=== PATIENT | female | born 1980 | race African-American/Black ===

== ENCOUNTER 2016-08-25 07:00 | Inpatient (IN) | payer OTHER ==
[~2016-08-25] VITALS: Ht 175.3 cm; Wt 82.6 kg
[~2016-08-25 07:00] MED LIST: MULTI-DAY VITA1 EACH PO
--- NOTE | 2016-09-01 09:45 | Operative Report ---
Operative/Inv Procedure Report Surgery Date: 09/01/16 Name of Procedure: Exploratory laparotomy and multiple myomectomy Pre-Operative Diagnosis: Fibroids menorrhagia Post-Operative Diagnosis: Same Estimated Blood Loss: 50ml to 100ml Surgeon/Nursing Faculty: JANE LIANG,CARLA Parkinsonand DR CHAVEZ Anesthesia: general endotracheal tube Operative/Procedure Note Note: Procedure note patient was taken the operating room placed supine position after adequate anesthesia patient placed in dorsolithotomy position the vagina was prepped draped so fashion bladder cystoscopy was performed and placement stents by Dr.Arnold Ramos will dictate that part of the case. Patient was returned spine position on the abdomen was prepped and draped so fashion through a Pfannenstiel skin incision skin was cut was carried down to rectus fascia which was cut in curvilinear fashion I direction peritoneal cavity was entered bluntly as well as sharply Jones O'Davin was placed in usual fashion lap pads with rings were placed patient was placed in Trendelenburg Pitressin was injected into the fundus the uterus a single-tooth tenaculum was used to traction the fundus the uterus with there was a 3 cm 4 cm fibroid this was the serosa was opened the fibroid was teased away from the myometrium I and sent to pathology hemostasis was apparent on at this point the cervical fibroid which could be seen anteriorly and posteriorly the serosa between the uterosacrals was injected with Pitressin I at this point serosa was opened and the fibroid was teased away from the myometrium of the uterus patient tolerated that well on at this point the cervical delivered was oversewn running locking suture of 0 I it was imbricated with interrupted [id number] for hemostasis the fundal fibroid on incision was closed with 0 is well hemostasis was apparent at the end of the case Rich was applied to the surgical units after after the abdomen had been irrigated with copious amounts warm saline to clear. Oral instruments removed from the abdomen the lap pads were removed the counts correct the peritoneum was reprocessed and 0 fascia was reapproximated to continue sutures #1 on Bovie coagulation subcutaneous tissue was performed using a Bovie on hemostasis was apparent the skin was reapproximated stan sterile dressing was applied stents removed bilaterally tip intact without consequence patient was returned to supine position she was awakened from anesthesia extubated and transported recovery room awake alert Findings: 16 week size fibroid uterus a fundal fibroid that was possibly 4 cm on a fibroid that extended into the cervical canal that was approximately 6 cm I to submucosal fibroids 1 cm that was deep into the submucosa of the uterine lining. Normal ovaries bilaterally
[2016-09-01 10:34] LABS: ABSOLUTE EOSINOPHIL COUNT 0.1 /CUMM (0.0-0.7); BASOPHIL % 0.4 % (0.0-2.0); EOSINOPHIL % 0.6 % (0-5); MEAN CORPUSCULAR VOLUME 72.5 FL (81.0-99.0)
[2016-09-01 11:02] LABS: ABSOLUTE BASOPHIL COUNT 0 /CUMM (0.0-0.2); ABSOLUTE GRANULOCYTE CT 9.4 /CUMM (1.4-6.5); ABSOLUTE MONOCYTE COUNT 0.5 /CUMM (0.10-0.60); GRANULOCYTE % 72.4 % (42.2-75.2); HEMATOCRIT 27.3 % (37-47); MEAN CORPUSCULAR HGB 22.9 PG (27.0-31.0); MEAN CORPUSCULAR HGB CONC 31.5 G/DL (33.0-37.0); MEAN PLATELET VOLUME 9.9 FL (7.4-10.4); PLATELET COUNT 286 /CUMM (130-400); RBC DISTRIBUTION WIDTH 16.9 % (11.5-14.5); RED BLOOD CELL CT 3.76 /CUMM (4.20-5.40)
--- NOTE | 2016-09-02 09:30 | PN- Post Delivery/GYN ---
Subjective Subjective: NO COMPLAINTS Objective Last 24 Hrs of Vital Signs/I&O VSS PER CHART Physical Exam: PE PALE WF ABD SOFT NT LOCHIA MINIMAL FUNDUS FIRM NT EXT -HOMANS +EDEMA +1 Assessment/Plan Assessment/Plan ASSESS S/P PLAN CONT PPC
[2016-09-02 10:06] LABS: ABSOLUTE BASOPHIL COUNT 0.1 /CUMM (0.0-0.2); ABSOLUTE EOSINOPHIL COUNT 0 /CUMM (0.0-0.7); ABSOLUTE GRANULOCYTE CT 12.7 /CUMM (1.4-6.5); ABSOLUTE LYMPH COUNT 1.7 /CUMM (1.2-3.4); ABSOLUTE MONOCYTE COUNT 1.7 /CUMM (0.10-0.60); BASOPHIL % 0.3 % (0.0-2.0); EOSINOPHIL % 0 % (0-5); GRANULOCYTE % 78.8 % (42.2-75.2); HEMATOCRIT 24.9 % (37-47); MEAN CORPUSCULAR HGB CONC 30.5 G/DL (33.0-37.0); MEAN CORPUSCULAR VOLUME 71.9 FL (81.0-99.0); MEAN PLATELET VOLUME 10.4 FL (7.4-10.4); PLATELET COUNT 269 /CUMM (130-400); RBC DISTRIBUTION WIDTH 17.1 % (11.5-14.5); RED BLOOD CELL CT 3.47 /CUMM (4.20-5.40); WHITE BLOOD CELL COUNT 16.1 /CUMM (4.8-10.8)
[2016-09-03 09:13] LABS: ABSOLUTE BASOPHIL COUNT 0 /CUMM (0.0-0.2); ABSOLUTE EOSINOPHIL COUNT 0 /CUMM (0.0-0.7); ABSOLUTE GRANULOCYTE CT 4.9 /CUMM (1.4-6.5); ABSOLUTE LYMPH COUNT 3.5 /CUMM (1.2-3.4); ABSOLUTE MONOCYTE COUNT 0.8 /CUMM (0.10-0.60); BASOPHIL % 0.5 % (0.0-2.0); EOSINOPHIL % 0.5 % (0-5); GRANULOCYTE % 52.8 % (42.2-75.2); HEMATOCRIT 24.3 % (37-47); MEAN CORPUSCULAR HGB 22.5 PG (27.0-31.0); MEAN CORPUSCULAR HGB CONC 31.2 G/DL (33.0-37.0); MEAN CORPUSCULAR VOLUME 72.3 FL (81.0-99.0); MEAN PLATELET VOLUME 10.3 FL (7.4-10.4); RBC DISTRIBUTION WIDTH 17.1 % (11.5-14.5); RED BLOOD CELL CT 3.37 /CUMM (4.20-5.40); WHITE BLOOD CELL COUNT 9.3 /CUMM (4.8-10.8)
[2016-09-03 09:45] LABS: PLATELET COUNT 262 /CUMM (130-400)
[2016-09-03 09:53] VITALS: BP 96/50
--- NOTE | 2016-09-03 10:32 | Cons- Medical ---
AURELIA LIANG,SOFÍA 09/03/16 1031: General Information and HPI Consulting Request Date of Consult: 09/03/16 Requested By: CARLA LARA MD Reason for Consult: Chest pain History of Present Illness: 35-year-old female with no past medical history myomectomy on 09/01/2016. Medical consult was called for chest pain. On interviewing the patient she reported chest pain substernal with started yesterday after taking Motrin. Chest pain on and off with intensity varying from 7 x 10-3 x 10, not radiating, associated with catching up of breath while talking, denies shortness of breath and ambulation, dizziness, palpitations, syncope, pleuritic chest pain. Patient has history of acid reflux, but reports this pain is different from what she had before. Denies nausea, vomiting, headache, difficulty in urination, diarrhea, acid reflex, difficulty in swallowing, appetite change, fever, chills, pneumonia Allergies/Medications Allergies: Coded Allergies: NO KNOWN ALLERGIES (03/22/16) Home Med List: Multivitamin (Multi-Day Vitamins) 1 EACH TABLET 1 TAB PO DAILY SUPPLEMENT ( Reported) Current Medications: Current Medications Sig/Brian Start time Last Medication Dose Route Stop Time Status Admin Dextrose/Lactated 1,000 ML Q8H 09/01 944 DC 09/02 Ringer's IV 0626 Diphenhydramine HCl 25 MG Q6P PRN 09/01 0845 AC INJ Docusate Sodium 100 MG BID 09/01 1000 AC 09/03 PO 0948 Enoxaparin Sodium 40 MG DAILY 09/02 1000 AC 09/03 SC 0948 Hydromorphone HCl 50 MG Q24H PRN 09/01 1030 AC Sodium Chloride 45 ML IV Ibuprofen 800 MG .STK-MED ONE 09/03 1108 DC PO 09/03 1109 Ibuprofen 800 MG .STK-MED ONE 09/03 0551 DC PO 09/03 0552 Ibuprofen 800 MG Q6P PRN 09/02 0845 DC 09/03 PO 1614 Ketorolac 30 MG Q6P PRN 09/01 0945 AC 09/02 Tromethamine INJ 0454 Magnesium Hydroxide 30 ML AT BEDTIME NEED.. 09/02 0945 AC PO Morphine Sulfate 1 MG TIDPRN 09/03 2230 AC IV Morphine Sulfate 1 MG ONCE ONE 09/03 1100 DC 09/03 IV 09/03 1101 1106 Ondansetron HCl 4 MG Q6P PRN 09/01 0945 AC IV Oxycodone/ 1 TAB Q4P PRN 09/02 0945 AC 09/03 Acetaminophen PO 1812 Pantoprazole Sodium 40 MG DAILY 09/03 1130 AC 09/03 IV 1201 Patient Medication 1 UNIT ONE NR 09/03 1145 DC Teaching ED 09/03 1200 Simethicone 80 MG Q8P PRN 09/01 1830 AC 09/03 PO 0952 Review of Systems Review of Systems Constitutional: Reports: see HPI. Past History Surgical History Surgical History: Myomectomy Psychosocial History Smoking Status: Never Smoked ETOH Use: denies use Functional Ability ADLs Independent: dressing, eating, toileting, bathing. Ambulation: independent IADLs Independent: shopping, housework, finances, food prep, telephone, transportation , medication admin. Employment History Employment: Employed Exam & Diagnostic Data Last 24 Hrs of Vital Signs/I&O Vital Signs Date Time Temp Pulse Resp B/P Pulse O2 O2 Flow FiO2 Ox Delivery Rate 09/03 0953 96/50 Physical Exam General Appearance: alert, awake, mild distress Head: atraumatic Respiratory: normal breath sounds, chest non-tender, lungs clear Cardiovascular: regular rate/rhythm, No chest wall tenderness. Gastrointestinal: normal bowel sounds, soft Extremities: normal inspection, no edema Last 24 Hrs of Labs/Walt: Laboratory Tests 09/03/16 1800: Troponin I < 0.01 09/03/16 1149: Sodium Cancelled, Potassium Cancelled, Chloride Cancelled, Carbon Dioxide Cancelled, Anion Gap Cancelled, BUN Cancelled, Creatinine Cancelled, BUN/ Creatinine Ratio Cancelled 09/03/16 1140: Anion Gap 10, Estimated GFR > 60, BUN/Creatinine Ratio 16.7, Troponin I < 0.01 09/03/16 0600: CBC w Diff NO MAN DIFF REQ, RBC 3.37 L, MCV 72.3 L, MCH 22.5 L, RDW 17.1 H, MPV 10.3, Gran % 52.8, Lymphocytes % 37.6, Monocytes % 8.6, Eosinophils % 0.5, Basophils % 0.5, Absolute Granulocytes 4.9, Absolute Lymphocytes 3.5 H, Absolute Monocytes 0.8 H, Absolute Eosinophils 0, Absolute Basophils 0, PUBS MCHC 31.2 L Assessment/Plan Assessment/Plan Assessment and plan 1. Chest pain/discomfort: Differential includes pill esophagitis versus acute MT which is unlikely given no family history or risk factors, versus PE. We will obtain troponins and EKGs 2, CT angiogram, venous Doppler. CAT scan showed no evidence of PE and some free intraperitoneal air which could be due to recent procedure. Also prominence of left ventricle and right atrium noted. If patient's symptoms persist we will consider obtaining an echocardiogram in a.m. And also consider obtaining GI consult for possible Pill esophagitis. EKG showed non specific T wave cahnges with inersion in inferior leads. Recommendation 1. We'll start her on IV Protonix 2. Will continue GI cocktail 3. Continue with morphine as needed for pain 4. Avoid NSAIDS. . Consult Acknowledgment - Thank you for your consult request. RIVER LIANG,ABRAN 09/03/16 1203: Assessment/Plan Consult Acknowledgment - Thank you for your consult request. Attending MD Review Statement Attending Statement Attending MD Statement: examined this patient, discuss w/resident/PA/DATA PROCESSING SYSTEMS PROJECT PLANNER, agreed w/resident/PA/DATA PROCESSING SYSTEMS PROJECT PLANNER, reviewed EMR data (avail), discussed with nursing Attending Assessment/Plan: Patient seen and examined and discussed with the emergency medical services coordinator. Patient is 35-year-old female who recently had myomectomy done 2 days ago. Her subsequent course was uneventful to last evening when she swallowed her pain medication started to have dysphagia and chest pain. This morning chest pain got worse and she is having odynophagia. She is currently afebrile and not needing oxygen. She denies any leg pains. She does have coughing but no difficulty breathing. No fevers been reported. Her exam shows clear lungs. Legs are without any edema or tenderness. Chest is nontender on palpation. Labs were reviewed. She is mildly anemic and her WBC count is normal. EKG and troponin are currently pending. Assessment * Rule out PE given recent surgery * Suspected pill esophagitis * Rule out underlying angina Plan * Obtain EKG * 3 sets of troponin * CTA chest to rule out PE * No need for d-dimer * Start Protonix and GI cocktail; can use when necessary mylanta * do not DC today; possibly can DC in am.
--- NOTE | 2016-09-03 14:49 | ULTRASOUND REPORT ---
EXAMINATION: US TRIPLEX LOWER EXTREMITY, BILATERAL CLINICAL INFORMATION: Chest pain. Suspected DVT. COMPARISON: None. TECHNIQUE: Color-flow triplex imaging with spectral analysis and compression Doppler were performed on the bilateral lower extremities. FINDINGS: Respiratory variation, normal compression and augmented flow are noted throughout the bilateral lower extremities. The visualized common femoral vein, superficial femoral vein, profunda femoral vein, popliteal vein and mid calf peroneal and posterior tibial venous segments show no evidence of deep venous thrombosis. There is no Dewey's cyst. IMPRESSION: Normal triplex scan without evidence of deep venous thrombosis involving the bilateral lower extremities.
--- NOTE | 2016-09-03 15:06 | PN- Post Delivery/GYN ---
Subjective Subjective: C/O CHEST PAIN Objective Last 24 Hrs of Vital Signs/I&O Vital Signs Date Time Temp Pulse Resp B/P Pulse O2 O2 Flow FiO2 Ox Delivery Rate 09/03 0953 96/50 Physical Exam: PLEASANT BF WITH PAIN ON INSPIRATION LUNGS CLEAR ABD SOFT DISTENTION INSICION CDI EXT -HOMANS Assessment/Plan Assessment/Plan ASSESS S/P MYOMECTOMY ANEMIA ASYMPTOMATIC CHEST PAIN POSSIBLE GASTRITIS TRIAL OF ANTACIDS MED CONSULT DOPPLER OF LEGS
--- NOTE | 2016-09-03 15:50 | CT SCAN REPORT ---
EXAMINATION: CTA CHEST FOR PE CLINICAL INFORMATION: 35-year-old female presented with chest pain, shortness of breath. Recent history of myomectomy. COMPARISON: None. TECHNIQUE: Multidetector volumetric CT imaging of the chest is obtained after the administration of 95 mL Optiray 350 without immediate adverse reactions. Additional reformatted 2D images and maximum intensity projection 3D MIP images are generated on the CT workstation. DLP: 355.05 mGy-cm FINDINGS: PULMONARY ARTERIES: The pulmonary arteries enhance normally. There are no filling defects or other changes to suggest acute or chronic pulmonary embolism. MEDIASTINUM: There is no pathologically enlarged mediastinal, hilar lymphadenopathy present. There is no aortic aneurysm or dissection visualized. The left ventricle, however, appears somewhat prominent. The right atrium also appears somewhat prominent. LUNGS: Bibasilar airspace disease is present, otherwise both lung rosenberg are clear. Tracheobronchial tree appeared patent. PLEURA: There is no pleural effusion. No pleural mass or thickening. AXILLA: Few shotty bilateral axillary lymph nodes are noted. UPPER ABDOMEN: Remarkable for presence of free intraperitoneal air. The patient apparently had myomectomy few days ago. Presence of free intraperitoneal air would be consistent with recent surgery. OSSEOUS STRUCTURES: Scoliotic changes are noted within the thoracic spine. No superimposed suspicious lytic or sclerotic abnormality. IMPRESSION: 1. Small amount of free intraperitoneal air is present within the visualized included upper abdomen. Given the patient history of recent myomectomy, the finding would be most consistent with postsurgical changes. 2. No CT evidence of pulmonary embolism. 3. Incidental note is made of somewhat prominent left ventricle and right atrium. Clinical correlation is recommended. 4. Subtle bibasilar airspace disease, given the patient's history of recent surgery would be consistent with expected postoperative changes. This critical result was discussed with Dr. Dietrich at 3:13 PM on 09/03/2016 and it was ascertained that the content and urgency of the report was understood at the time of direct communication.
--- NOTE | 2016-09-04 12:11 | PN- Att Addend ---
Attending Addendum Attending Brief Note Patient chest pain has improved overnight. She had slight nausea this morning without any vomiting. No recent fever or chills. Laboratory Tests 09/04 09/03 0030 1800 Chemistry Troponin I (< 0.11 ng/ml) < 0.01 < 0.01 EKG is unchanged. CTA chest 1. Small amount of free intraperitoneal air is present within the visualized included upper abdomen. Given the patient history of recent myomectomy, the finding would be most consistent with postsurgical changes. 2. No CT evidence of pulmonary embolism. 3. Incidental note is made of somewhat prominent left ventricle and right atrium. Clinical correlation is recommended. 4. Subtle bibasilar airspace disease, given the patient's history of recent surgery would be consistent with expected postoperative changes. This critical result was discussed with Dr. Dietrich at 3:13 PM on 09/03/2016 and it was ascertained that the content and urgency of the report was understood at the time of direct communication. Assessment * Rule out PE given recent surgery- CTA negative * Suspected pill esophagitis * Rule out underlying angina- troponins are negative and EKGs unchanged. Patient overall at low risk Plan * Obtain echocardiogram * Continue oral Prilosec 20 mg daily for 2 weeks; can use when necessary mylanta * DC today if echo report is within normal limits
[2016-09-04] MEDS ORDERED: PERCOCET 5-3251 EACH PO (12:25)
[2016-09-04] MEDS ORDERED: MILK OF MA400 MG/52 PO (12:25)
[2016-09-04] MEDS ORDERED: FERROUS GLUCON324 M2 PO (12:25)
[2016-09-04] MEDS ORDERED: PROTONIX40 M3 IV (12:25)
--- NOTE | 2016-09-04 13:41 | ECHOCARDIOGRAM REPORT ---
MIO LANG Age: 35 : 1980 Gender: F Exam Date: 09/04/2016 11:47 Exam Location: [facility] Ht (in): 69 Wt (lb): 182 BSA: 2.02 BP: / Ordering Physician: SALLY HATFIELD MD Referring Physician: SALLY HATFIELD MD Technologist: Viky Gauthier RUST Room Number: [id number] Indications: CHEST PAIN Rhythm: Sinus Technical Quality: Good FINDINGS Left Ventricle Normal left ventricular size, wall thickness and systolic function with no obvious regional wall motion abnormalities. Normal left ventricular diastolic filling pattern for age. The ejection fraction is visually estimated at >65 %. Right Ventricle The right ventricle is normal in size and function. Right Atrium The right atrium is normal in size. Left Atrium The left atrium is normal in size. The interatrial septum is intact. Mitral Valve The mitral valve is normal in structure and function. There is mild mitral regurgitation. Aortic Valve Structurally normal aortic valve without significant sclerosis or stenosis. There is no aortic regurgitation. Tricuspid Valve The tricuspid valve is normal in structure and function. There is trace tricuspid regurgitation. Pulmonary artery systolic pressure is normal. Pulmonic Valve Structurally normal pulmonic valve. There is trace pulmonic regurgitation. Pericardium Normal pericardium without effusion. No pleural effusion. Great Vessels Normal aortic root dimension. The aortic arch and great vessels are well seen and are normal. CONCLUSIONS No significant chamber abnormalities. No significant valve abnormalities. Normal transthoracic echocardiogram. Physiologic valvular regurgitation. Dick Mckeon M.D. (Electronically Signed) Final Date: 04 September 2016 13:41 MEASUREMENTS (Male / Female) Normal Values 2D ECHO LV Diastolic Diameter PLAX 6.0 cm 4.2 - 5.9 / 3.9 - 5.3 cm LV Systolic Diameter PLAX 3.8 cm 2.1 - 4.0 cm LV Fractional Shortening PLAX 36.7 % 25 - 46 % LV Ejection Fraction 2D Teich 65.6 % IVS Diastolic Thickness 0.8 cm LVPW Diastolic Thickness 0.8 cm LVPW Systolic Thickness 0.0 cm LV Relative Wall Thickness 0.3 RV Internal Dim ED PLAX 3.7 cm 1.9 - 3.8 cm LVOT Diameter 2.0 cm Aortic Root Diameter 2.6 cm LA Systolic Diameter LX 4.0 cm 3.0 - 4.0 / 2.7 - 3.8 cm LV Ejection Fraction MOD BP 62.1 % >= 55 % LV Diastolic Length 4C 8.6 cm 6.9 - 10.3 cm LV Diastolic Area 4C 36.5 cm LV Diastolic Volume MOD 4C 127.0 cm LV Ejection Fraction MOD 4C 66.1 % LV Stroke Volume MOD 4C 84.0 cm LV Systolic Length 4C 6.9 cm LV Systolic Area 4C 18.1 cm LV Systolic Volume MOD 4C 43.0 cm LV Ejection Fraction MOD 2C 58.1 % LV Diastolic Volume 4C AL 130.9 cm 85 - 139 / 69 - 109 cm LV Systolic Volume 4C AL 40.3 cm LV Ejection Fraction 4C AL 69.2 % LV Stroke Volume 4C AL 90.6 cm LV Ejection Fraction 2C AL 61.2 % Ascending Aorta Diameter 2.7 cm DOPPLER AV Peak Velocity 159.0 cm/s AV Peak Gradient 10.1 mmHg AV Mean Velocity 106.0 cm/s AV Mean Gradient 5.0 mmHg AV Velocity Time Integral 32.7 cm LVOT Peak Velocity 120.0 cm/s LVOT Peak Gradient 5.8 mmHg LVOT Mean Velocity 84.2 cm/s LVOT Mean Gradient 3.0 mmHg LVOT Velocity Time Integral 26.9 cm LVOT Stroke Volume 84.5 cm AV Area Cont Eq vti 2.6 cm AV Area Cont Eq pk 2.4 cm MV Peak Velocity 129.0 cm/s MV Peak Gradient 6.7 mmHg MV Mean Velocity 64.0 cm/s MV Mean Gradient 2.0 mmHg Mitral E Point Velocity 86.9 cm/s Mitral A Point Velocity 46.9 cm/s Mitral E to A Ratio 1.9 MV PHT Velocity 130.0 cm/s MV Deceleration Mchenry 528.0 cm/s MV Pressure Half Time 73.9 ms MV Area PHT 3.0 cm MV Deceleration Time 151.0 ms TR Peak Velocity 212.0 cm/s TR Peak Gradient 18.0 mmHg Right Atrial Pressure 5.0 mmHg Pulmonary Artery Systolic Pressu 23.0 mmHg Right Ventricular Systolic Press 23.0 mmHg PV Peak Velocity 94.0 cm/s PV Peak Gradient 3.5 mmHg PV Mean Velocity 71.2 cm/s PV Mean Gradient 2.0 mmHg PV Velocity Time Integral 24.8 cm LV E' Lateral Velocity 21.6 cm/s Mitral E to LV E' Lateral Ratio 4.0 LV E' Septal Velocity 14.5 cm/s Mitral E to LV E' Septal Ratio 6.0
--- NOTE | 2016-09-06 11:22 | Operative Report ---
Operative/Inv Procedure Report Surgery Date: 09/01/16 Name of Procedure: cystoscopy: bilateral stent insertion Pre-Operative Diagnosis: fibroids/pelvic pain Post-Operative Diagnosis: same Estimated Blood Loss: scant Surgeon/Appliance Repairer: MD CANNON ARNOLD-UROLOGY Anesthesia: general endotracheal tube Specimens: UCX Complications: NONE Operative/Procedure Note Note: The patient was taken to the operating room and placed on the OR table in supine position. Timeout was performed, with the patient awake, to confirm identify, planned procedures, anesthesia, antibiotics and other pertinent verito-operative information. After adequate anesthesia, and IV antibiotics, the patient was placed in lithotomy Yellow-fin stirrups. She was then draped and prepped in the usual surgical fashion, including a vaginal prep. A 22 Uzbek cystoscope sheath with a 30 angle lens was inserted into the bladder without significant difficulty. The bladder was thoroughly and systematically examined, and was noted to be free of tumor, free of stone, free of endometriosis. Both ureteral orifices were in their orthotopic positions with clear reflux bilaterally. Under direct visualization the left orifice was intubated with a 5 Uzbek whistle-tip catheter, which was advanced easily into the left kidney pelvis. The right ureteral orifice was intubated with a second 5 Uzbek ureteral whistle tip catheter, and advanced into the right renal pelvis without difficulty. For identification purposes the blue marked stent went into the left kidney and the right ureteral stent was marked red. Urine culture was obtained and sent to pathology. The cystoscope was then removed leaving both stents in proper place. An 18 Uzbek Yen catheter was inserted draining clear fluid and 10 mL of sterile water was then placed in the balloon. The ends ureteral stents, which protruded externally, were taped to the Yen catheter in order to secure their position. The individual ureteral stents were then connected to their individual drainage devices. The patient tolerated the procedure well. All sponge needle and instrument count were correct at the end of this procedure. The patient was then placed in supine position with Venodyne's in place. At this point, Dr. Lara was able to proceed with her patient's surgery. Findings: NORMAL BLADDER Discharge Disposition: PROCEED WITH DR. LARA CC: NADINE CANNON MD
--- NOTE | 2016-09-08 12:33 | Surgical Discharge Summary ---
Visit Information Visit Dates Admission Date: 09/01/16 Discharge Date: 09/04/16 History of Present Illness Chief Complaint: Metromenorrhagia Medical History Tetanus Vaccine: 04/18/12 Surgical History Pertinent Surgical History: Myomectomy Psychosocial History What is Your Primary Language? 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 Cesar Marrero patient had a negative CAT scan of the chest negative d-dimer she had a CAT scan that demonstrated a large ventricle she had a normal echocardiogram I she had normal EKGs. Patient continued feel better with some pain to para 0 oral pain medication was switched to a Percocet and on the Motrin was discontinued. Patient denies any vaginal bleeding she felt well and she was discharged home on third postoperative day Allergies: Coded Allergies: NO KNOWN ALLERGIES (03/22/16) Disposition Summary Disposition Principal Diagnosis: Status post myomectomy Additional Diagnosis: Anemia Discharge Disposition: home or self care Discharge Instructions General Discharge Information Code Status: Full Code Patient's Diet: Regular Patient's Activity: Pelvic rest no heavy lifting greater than 15 pounds no driving for 2 weeks my office 1 week Follow-Up Instructions/Appts: 1 week my office Medications at Discharge Discharge Medications: Continue taking these medications: Multivitamin (Multi-Day Vitamins) 1 EACH TABLET 1 Tablet ORAL DAILY Comments: DOCUMENTED PER CMR DURING PRE-SX INTERVIEW Start taking the following new medications: Ferrous Gluconate (Ferrous Gluconate) 324 MG (38 MG IRON) TABLET 325 Milligram ORAL DAILY Qty = 90 No Refills Oxycodone HCl/Acetaminophen (Percocet 5-325 MG Tablet) 5 MG-325 MG TABLET 1 Tablet ORAL EVERY 4 HOURS NEEDED as needed for PAIN Qty = 30 No Refills Comments: Last Taken: 09/04/16 Time: 9:35 AM Magnesium Hydroxide (Milk Of Magnesia) 400 MG/5 ML ORAL.SUSP 30 Milliliters ORAL AT BEDTIME NEEDED as needed for CONSTIPATION Qty = 30 No Refills Pantoprazole Sodium (Protonix) 40 MG TABLET.DR 40 Milligram INTRAVEN DAILY Qty = 30 No Refills Comments: Last Taken: 09/04/16 Time: 9:35AM
== END 2016-09-04 14:16 | DRG 743 ==
LOC: SDA 07:00 → GNO 09-01 02:27 → SDA 09-01 02:27 → GNO 09-01 12:15
PROVIDERS: ADMIT Specialist
PROC: 0UB90ZZ Excision of Uterus, Open Approach (ICD-10-PCS; principal; 2016-09-01)
PROC: 0T788DZ Dilation of Bilateral Ureters with Intraluminal Device, Via Natural or Artificial Opening Endoscopic (ICD-10-PCS; 2016-09-01)
DX: N92.0 Excessive and frequent menstruation with regular cycle (principal); D25.9 Leiomyoma of uterus, unspecified
CPT/HCPCS: 36415; 82436; 87086; 88305; 93005; 93010; 93306; 93970; J0131; J0694; J1100; J1170; J1200; J1650; J1885; J2270; J2405